=== PATIENT | female | born 2000 | race Caucasian/White ===

== ENCOUNTER 2024-11-18 11:02 | Emergency (ER) | payer OTHER, SELFPAY ==
[2024-11-18 11:03] VITALS: BP 126/90; PULSE 95; RESP 18; TEMP 37.2; O2SAT 99; BMI 34.1
--- NOTE | 2024-11-18 11:15 | EX.ED.DYSGE1 ---
HPI <ELMA Navarrete - Last Filed: 11/18/24 12:16> History of Present Illness Chief Complaint: Flank Pain Narrative Narrative: 24-year-old female with no past medical history states she was having a bowel movement this morning and developed sudden left sided flank pain. This caused her to become nauseous and throw up. Pain seemed to wax and wane and now has resolved on the way to the hospital. She has no fever or chills. No dysuria or hematuria. She has had normal bowel movements this week and denies diarrhea, melena, or hematochezia. She is on semaglutide for weight loss and control. No abdominal surgical history. No history of kidney stones. PFSH <ELMA Navarrete Last Filed: 11/18/24 12:16> PFSH Medical History no medical history Home Medications ?Medication ?Instructions ?Recorded ?Last Taken ?Type hydrocodone-acetaminophen 5-325mg 1 tab PO Q6H PRN PRN Pain 3 days 11/18/24 Unknown Rx 5mg-325mg #10 TABLETS naproxen 500 mg tablet (Naprosyn) 500 mg PO BID PRN pain #20 tabs 11/18/24 Unknown Rx ondansetron 4 mg disintegrating 4 mg PO Q8H PRN PRN Nausea #10 tabs 11/18/24 Unknown Rx tablet tamsulosin 0.4 mg capsule (Flomax) 0.4 mg PO DAILY #7 caps 11/18/24 Unknown Rx Allergy/AdvReac Type Severity Reaction Status Date / Time Sulfa (Sulfonamide Allergy Swelling Verified 11/18/24 11:03 Antibiotics) acetaminophen AdvReac Vomiting Verified 11/18/24 11:03 Family History no significant family his Surgical History no surgical history Social History Smoking Status: Never smoker ROS <ELMA Navarrete Last Filed: 11/18/24 12:16> ROS ED ROS Narrative Constitutional: Negative for fever, chills, malaise. GI: Positive for nausea, vomiting. Negative for abdominal pain, diarrhea, constipation, melena, hematochezia. : Negative for dysuria, hematuria or frequency. EXAM <ELMA Navarrete Last Filed: 11/18/24 12:16> Physical Exam Narrative Exam Narrative: CONST: Patient sitting in no acute distress. EYES: Normal inspection. NECK: Normal inspection. RESP: No respiratory distress, CTAB. CVS: Regular rate and rhythm, no murmur, no gallop. ABD: Soft and nontender, no guarding or rebound, nondistended. Back: Normal inspection, no CVA tenderness. SKIN: Color normal, no rash, warm, dry, intact. EXTREMITIES: Normal appearance, no pedal edema. NEURO: Alert and answering questions appropriately. PSYCH: Normal affect. Const Vital Signs: 11/18/24 11:03 11/18/24 12:10 Temperature 98.9 F 98.9 F Temperature Source Oral Pulse Rate 95 95 Respiratory Rate 18 18 Blood Pressure 126/90 H 126/90 H Blood Pressure Mean 102 102 Pulse Ox 99 99 Oxygen Delivery Method Room Air <Dr. Nate Martinez MD - Last Filed: 11/18/24 11:32> Physical Exam Const Vital Signs: 11/18/24 11:03 11/18/24 12:10 Temperature 98.9 F 98.9 F Temperature Source Oral Pulse Rate 95 95 Respiratory Rate 18 18 Blood Pressure 126/90 H 126/90 H Blood Pressure Mean 102 102 Pulse Ox 99 99 Oxygen Delivery Method Room Air MDM <ELMA Navarrete - Last Filed: 11/18/24 12:16> [facility] MDM Narrative Medical decision making narrative: History gathered from: Patient and mom Differential includes but not limited to: Kidney stone, pyelonephritis, musculoskeletal pain 24-year-old female has left flank pain and nausea and vomiting. She appears well and nontoxic. Vital signs stable. She has a benign exam with no abdominal or flank tenderness. CBC, BMP unremarkable. Serum negative. Urinalysis has occult blood and 5-10 WBCs but is contaminated. It was sent for culture. CT shows a 4 mm left mid ureter obstructive stone with mild hydroureteronephrosis. Pain is adequately controlled after IV Toradol x 1. I prescribed naproxen, Percocet, Flomax, and Zofran as needed and discussed return precautions. She was discharged in stable condition. I have personally performed a face to face assessment of the patient and have reviewed the DONNY Note. I performed a substantive portion of the visit including all aspects of the following. My phelps findings include: Healthy 24-year-old female complaining of left flank pain that started suddenly today while having a bowel movement. Patient said no recent illness. No fever. No vomiting or diarrhea. No dysuria or hematuria. She has no history of kidney stones. Her mom has had kidney stones. No back injury or trauma. Exam is [well-appearing 24-year-old female. Vital signs stable afebrile. H EENT exam pupils round reactive light. Mytrex membranes. Lungs clear to auscultation. Heart regular rhythm rate about 90 no murmur. Chest wall ribs nontender. Abdomen soft nontender. Moving all 4 extremities. Nontender no edema. Back no reproducible pain. Her pains over her left flank region but is not reproducible. There is no bruising. Patient is awake and alert. Normal neurologic exam. Normal strength.] Medical Decision Making [24-year-old left flank pain. Possible kidney stone versus UTI versus strain versus other etiologies. CAT scan labs being obtained. She does not want anything for pain at this time.] Other additions or changes: [None] Lab Data Labs: Laboratory Results - last 24 hr 11/18/24 11/18/24 11:11 11:16 WBC 10.4 RBC 4.84 Hgb 13.8 Hct 41.8 MCV 86.4 MCH 28.5 MCHC 33.0 RDW Std Deviation 39.8 RDW Coeff of Sabrina 12.6 Plt Count 241 MPV 10.1 Immature Gran % (Auto) 0.600 Neut % (Auto) 71.3 H Lymph % (Auto) 22.1 Collier % (Auto) 4.9 Eos % (Auto) 0.7 Baso % (Auto) 0.4 Absolute Neuts (auto) 7.4 Absolute Lymphs (auto) 2.30 Nucleated RBC % 0 Sodium 138 Potassium 4.1 Chloride 103 Carbon Dioxide 22.2 Anion Gap 12 BUN 11 Creatinine 0.86 Estim Creat Clear Calc 111.62 Est GFR (MDRD) Non-Af 97 BUN/Creatinine Ratio 13.0 Glucose 97 Calcium 9.0 Serum , Qual NEGATIVE Urine Color Yellow Urine Clarity Sl. Cloudy Urine pH 6.0 Ur Specific [place] 1.020 Urine Protein 30 H Urine Glucose (UA) Normal Urine Ketones 5 H Urine Occult Blood 250 H Urine Nitrite Negative Urine Bilirubin Negative Urine Urobilinogen Normal Ur Leukocyte Esterase 25 H Urine RBC > 100 SEEN Urine WBC 5-10 SEEN Ur Squamous Epith Cells 10-25 SEEN Urine Bacteria 1+ Urine Mucus 1+ Radiography Diagnostic Testing: Clinical Impression(s) from Imaging Studies Abdomen/Pelvis CT 11/18/24 11:42 IMPRESSION: 1. Small calculus within the mid left ureter with mild hydroureteronephrosis. 2. Additional tiny nonobstructing bilateral nephrolithiasis. Reading Location: [id number] <Dr. Nate Martinez MD - Last Filed: 11/18/24 11:32> [facility] Narrative Medical decision making narrative: I have personally performed a face to face assessment of the patient and have reviewed the DONNY Note. I performed a substantive portion of the visit including all aspects of the following. My phelps findings include: Healthy 24-year-old female complaining of left flank pain that started suddenly today while having a bowel movement. Patient said no recent illness. No fever. No vomiting or diarrhea. No dysuria or hematuria. She has no history of kidney stones. Her mom has had kidney stones. No back injury or trauma. Exam is [well-appearing 24-year-old female. Vital signs stable afebrile. H EENT exam pupils round reactive light. Mytrex membranes. Lungs clear to auscultation. Heart regular rhythm rate about 90 no murmur. Chest wall ribs nontender. Abdomen soft nontender. Moving all 4 extremities. Nontender no edema. Back no reproducible pain. Her pains over her left flank region but is not reproducible. There is no bruising. Patient is awake and alert. Normal neurologic exam. Normal strength.] Medical Decision Making [24-year-old left flank pain. Possible kidney stone versus UTI versus strain versus other etiologies. CAT scan labs being obtained. She does not want anything for pain at this time.] Other additions or changes: [None] History & Record Review Discussion w/independent historian: Patient and Family Additional record(s) reviewed:: No prior records Lab Data Attestation: I reviewed the patient's lab results. Lab results narrative: CBC normal. White count of 10. H&H 13 and 41. Platelets 241. UA shows 250 occult blood and no nitrates. Labs: Laboratory Results - last 24 hr 11/18/24 11/18/24 11:11 11:16 WBC 10.4 RBC 4.84 Hgb 13.8 Hct 41.8 MCV 86.4 MCH 28.5 MCHC 33.0 RDW Std Deviation 39.8 RDW Coeff of Sabrina 12.6 Plt Count 241 MPV 10.1 Immature Gran % (Auto) 0.600 Neut % (Auto) 71.3 H Lymph % (Auto) 22.1 Collier % (Auto) 4.9 Eos % (Auto) 0.7 Baso % (Auto) 0.4 Absolute Neuts (auto) 7.4 Absolute Lymphs (auto) 2.30 Nucleated RBC % 0 Sodium 138 Potassium 4.1 Chloride 103 Carbon Dioxide 22.2 Anion Gap 12 BUN 11 Creatinine 0.86 Estim Creat Clear Calc 111.62 Est GFR (MDRD) Non-Af 97 BUN/Creatinine Ratio 13.0 Glucose 97 Calcium 9.0 Serum , Qual NEGATIVE Urine Color Yellow Urine Clarity Sl. Cloudy Urine pH 6.0 Ur Specific [place] 1.020 Urine Protein 30 H Urine Glucose (UA) Normal Urine Ketones 5 H Urine Occult Blood 250 H Urine Nitrite Negative Urine Bilirubin Negative Urine Urobilinogen Normal Ur Leukocyte Esterase 25 H Urine RBC > 100 SEEN Urine WBC 5-10 SEEN Ur Squamous Epith Cells 10-25 SEEN Urine Bacteria 1+ Urine Mucus 1+ Radiography Diagnostic Testing: Clinical Impression(s) from Imaging Studies Abdomen/Pelvis CT 11/18/24 11:42 IMPRESSION: 1. Small calculus within the mid left ureter with mild hydroureteronephrosis. 2. Additional tiny nonobstructing bilateral nephrolithiasis. Reading Location: [facility] Discharge Plan Triage Chief Complaint: Flank Pain ED Midlevel Provider: Ijeoma Rajput ED Provider: Nate Martinez Dx/Rx/DC Orders Clinical Impression: Calculus of left kidney Instructions: ED Kidney Stone with Pain Prescriptions: New ondansetron 4 mg tablet,disintegrating 4 mg PO Q8H PRN PRN (Reason: Nausea) Qty: 10 0RF naproxen [Naprosyn] 500 mg tablet 500 mg PO BID PRN (Reason: pain) Qty: 20 0RF hydrocodone-acetaminophen 5-325 mg tablet 1 tab PO Q6H PRN PRN (Reason: Pain) 3 Days Qty: 10 0RF tamsulosin [Flomax] 0.4 mg capsule 0.4 mg PO DAILY Qty: 7 0RF Primary Care Provider: ELIZABETH MCMULLEN Referrals: ELIZABETH MCMULLEN [Other] Activity Restrictions/Additional Instructions: There is a 4 mm kidney stone on the left side. Take the pain and nausea medication as needed. The size stone should pass on its own but if you have severe pain not manageable with medications, develop a fever, or are completely unable to pee please come back to the emergency room for reevaluation. Print Language: [place] Disposition Disposition: Home, Self Care
[2024-11-18 11:26] LABS: Absolute Neutrophil Count 7.4 X10^3/uL (2.0-7.7); Basophil# 0.04 X10^3/uL; Basophil% 0.4 % (0-1); Eosinophil# 0.07 X10^3/uL; Eosinophils% 0.7 % (0-5); Hematocrit 41.8 % (37-47); Hemoglobin 13.8 g/dL (12.0-15.0); Lymphocyte % 22.1 % (19-41); Mean Corpuscular Hgb 28.5 pg (27.0-32.0); Mean Corpuscular Volume 86.4 fL (81-99); Mean Platelet Vol. 10.1 fl (6.2-12.0); Monocyte# 0.51 X10^3/uL; Monocyte% 4.9 % (0-10); NRBC Flagged by Analyzer 0 % (0-5); Neutrophil # 7.44 X10^3/uL (2.7-7.7); Neutrophil % 71.3 % (47-70); Platelet Count 241 K/mm3 (150-450); RBC Distribution Width CV 12.6 % (11.6-14.6); RBC Distribution Width SD 39.8 fl (35.1-43.9); Red Blood Count 4.84 M/mm3 (4.2-5.4); White Blood Count 10.4 K/mm3 (4.4-11.0)
[2024-11-18 11:26] LABS: Color, Urine Yellow (Yellow); Glucose, Dipstick Normal (Normal); Ketone-Dipstick 5 mg/dl (Negative); Leukocyte Esterase-Dipstick 25 /ul (Negative); Nitrite-Dipstick Negative (Negative); Occult Blood-Urine 250 /ul (Negative); Protein-Dipstick 30 mg/dl (Negative); Urine Bilirubin Dipstick Negative (Negative); Urine Clarity Sl. Cloudy (Clear); Urine Urobilinogen Normal (Normal)
[2024-11-18] MEDS: Ketorolac 15 MG/ML Vial IV (11:36)
[2024-11-18 11:38] LABS: Internal QC Validated? YES +Cl - CLEAR BKGD; Pregnancy, Serum, hCG Quali. NEGATIVE Negative
[2024-11-18 11:39] LABS: Bacteria 1+ /hpf (None Seen); Mucous, Urine 1+ /hpf (<or=2+); Red Blood Cells-Urine > 100 SEEN /hpf (0-5); Squamous Epithelial Cells - UA 10-25 SEEN /hpf (5-10); White Blood Cells 5-10 SEEN /hpf (0-5)
--- NOTE | 2024-11-18 11:42 | CT_ITS ---
PROCEDURE: ABDOMEN/PELVIS WITHOUT CONT 11/18/2024 REASON FOR EXAM: LEFT FLANK PAIN TECHNIQUE: Abdomen and pelvis CT without intravenous contrast. Noncontrast technique limits evaluation of the abdominal and pelvic viscera. Coronal and Sagittal reconstruction series were provided. One or more dose reduction techniques were used (e.g., Automated exposure control, adjustment of the mA and/or kV according to patient size, use of iterative reconstruction technique). PATIENT PREPARATION: Per protocol ORAL CONTRAST TYPE: None. COMPARISON: None. FINDINGS: Lung bases: The lung bases are clear. The heart is normal in size. Liver: The unopacified liver is grossly unremarkable. No biliary ductal dilation. Gallbladder: No radiopaque stones within the gallbladder. Spleen: Normal in size. Pancreas: The unopacified pancreas is unremarkable. Adrenals: No adrenal mass. Kidneys: Tiny nonobstructing bilateral nephrolithiasis. Small calculus within the mid left ureter (coronal image 60), measuring approximately 0.4 cm. Mild left hydroureteronephrosis. Bladder: Decompressed. Reproductive Organs: Normal uterine size and contour. Ovaries are unremarkable. Bowel: The bowel loops are normal in caliber. No ascites or pneumoperitoneum. Normal appendix. Lymph nodes: Visualization is limited without the use of IV contrast. No large abdominopelvic lymphadenopathy. Vasculature: The abdominal aorta and IVC contours are normal. Noncontrast technique limits evaluation. Bones: No aggressive osseous lesions. CT/Abdomen/Pelvis without Cont IMPRESSION: 1. Small calculus within the mid left ureter with mild hydroureteronephrosis. 2. Additional tiny nonobstructing bilateral nephrolithiasis. Reading Location: [id number]
[2024-11-18 11:47] LABS: Anion Gap 12 (5-15); BUN 11 mg/dL (4-19); Carbon Dioxide 22.2 mmol/L (21.0-32.0); Chloride 103 mmol/L (98-108); Creatinine, Serum 0.86 mg/dL (0.70-1.20); EST Glomerular Filtration Rate 97 (>60); Estimated Creatinine Clearance 111.62 ml/min (50-250); Glucose 97 mg/dL (70-99); Potassium 4.1 mmol/L (3.3-5.1); Sodium Level 138 mmol/L (133-145)
[2024-11-18 12:10] VITALS: BP 126/90; PULSE 95; RESP 18; TEMP 37.2; O2SAT 99
== END 2024-11-18 12:18 | disposition home or self-care (01) ==
PROVIDERS: Physician Assistant; Emergency Provider Emergency Medicine; Visit Provider Emergency Medicine
DX: N13.2 Hydronephrosis with renal and ureteral calculous obstruction (principal)
CPT/HCPCS: 74176; 80048; 81001; 84703; 85025; 87086; 87088; 96374; 99282; A4216